=== PATIENT | male | born 1960 | race Caucasian/White ===

== ENCOUNTER → 2021-02-24 15:48 | Outpatient (CLI) | payer OTHER, SELFPAY ==
[2021-02-24 16:58] LABS: COVID-19 CEPHEID PCR (VTM/NP) Negative (Negative)
== END ==
PROVIDERS: Visit Provider Physician Assistant
DX: Z20.822 Contact with and (suspected) exposure to COVID-19 (principal)
CPT/HCPCS: U0003

== ENCOUNTER → 2021-03-01 10:40 | Outpatient (CLI) | payer OTHER, SELFPAY ==
[2021-03-01 14:24] LABS: COVID-19 CEPHEID PCR (VTM/NP) Negative (Negative)
== END ==
PROVIDERS: Referring Provider Nurse Practitioner Family; Visit Provider Nurse Practitioner Family
DX: Z20.822 Contact with and (suspected) exposure to COVID-19 (principal)
CPT/HCPCS: U0003